=== PATIENT | male | born 1970 | race Caucasian/White ===

== ENCOUNTER 2016-04-09 19:17 | Emergency (ER) | payer OTHER ==
[~2016-04-09] VITALS: Ht 182.9 cm; Wt 83.9 kg
[~2016-04-09 19:17] MED LIST: LISINOPRIL PO; MIRAPEX0.125 MG PO; PRILOSEC40 MG PO; TRAMADOL HYDRO100 MG PO; ZESTRIL30 MG PO; [UNRECOGNIZED DRUG - REMARK]
[2016-04-09 19:20] VITALS: BP 113/79
--- NOTE | 2016-04-09 19:27 | NUR ---
Lele bustillo in [facility] - 04/09/16 at [address] Martinez evaluating patient at bedside.
--- NOTE | 2016-04-09 19:27 | NUR ---
PT TAKEN TO BED 8
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
[2016-04-09] MEDS ORDERED: HYDROcodone/APAP 10/325 MG 1 TAB TAB PO PRN (19:50)
[2016-04-09] MEDS ORDERED: KETOROLAC 30 MG/ML VIAL IM ONE (20:50)
[2016-04-09 21:32] VITALS: BP 110/75
--- NOTE | 2016-04-09 21:33 | NUR ---
Patient discharged with v/s stable. Written and verbal after care instructions given and explained. Patient alert, oriented and verbalized understanding of instructions. Ambulatory with steady gait. All questions addressed prior to discharge. ID band removed. Patient advised to follow up with PMD. Rx of NORCO 10MG-325MG PO, MOTRIN 600MG PO, VALIUM 5MG PO given. Patient educated on indication of medication including possible reaction and side effects. Opportunity to ask questions provided and answered.
== END 2016-04-09 21:33 | disposition home or self-care (01) ==
LOC: MED 19:17
DX: M54.5 Low back pain (principal); I10 Essential (primary) hypertension
CPT/HCPCS: 96372; 99283; J1885

== ENCOUNTER 2017-09-05 21:08 | Emergency (ER) | payer OTHER ==
[~2017-09-05] VITALS: Ht 182.9 cm; Wt 83.9 kg
[~2017-09-05 21:08] MED LIST changes: +LISI30TA6 PO; -LISINOPRIL PO; -MIRAPEX0.125 MG PO; +OMEP40EC1 PO; +PRAM0.122 PO; -PRILOSEC40 MG PO; -TRAMADOL HYDRO100 MG PO; -ZESTRIL30 MG PO
[2017-09-05 21:30] VITALS: BP 110/75
--- NOTE | 2017-09-05 21:33 | NUR ---
TO LOBBY VIA W/C, A/W BED, XRAY , VSS , ERMD NOTED
--- NOTE | 2017-09-05 22:20 | NUR ---
pt placed on cspine precautions. Cervical collar applied per MD Orders.
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
--- NOTE | 2017-09-05 22:20 | NUR ---
wheelchair assisted to bed 5
[2017-09-05] MEDS ORDERED: KETOROLAC 60 MG/2 ML VIAL IM ONE (23:40)
--- NOTE | 2017-09-06 | NUR ---
Patient discharged with v/s stable. Written and verbal after care instructions given and explained. Patient alert, oriented and verbalized understanding of instructions. Wheel Chair Assisted with to car. All questions addressed prior to discharge. ID band removed. Patient advised to follow up with PMD. Rx of MOTRIN given. Patient educated on indication of medication including possible reaction and side effects. Opportunity to ask questions provided and answered.
[2017-09-06 00:11] VITALS: BP 128/72
== END 2017-09-06 | disposition home or self-care (01) ==
LOC: MED 21:08
DX: S16.1XXA Strain of muscle, fascia and tendon at neck level, initial encounter (principal); S09.8XXA Other specified injuries of head, initial encounter; I10 Essential (primary) hypertension; W16.622A Jumping or diving into natural body of water striking bottom causing other injury, initial encounter; Y93.15 Activity, underwater diving and snorkeling; Y92.89 Other specified places as the place of occurrence of the external cause; Y99.8 Other external cause status
CPT/HCPCS: 70450; 72125; 96372; 99284; J1885